=== PATIENT | male | born 1970 | race Two or more races ===

== ENCOUNTER 2020-07-18 11:27 | Emergency (ER) | payer OTHER, SELFPAY ==
--- NOTE | 2020-07-18 11:38 | XR_ITS ---
EXAMINATION: XR LUMBOSACRAL SPINE CLINICAL INFORMATION: Low back pain COMPARISON: None TECHNIQUE: Three views of the lumbosacral spine. FINDINGS: There is normal lumbar segmentation with 5 nonrib-bearing lumbar vertebrae of normal height and normal lumbar lordosis. There is no lumbar vertebral compression, spondylolisthesis, disc narrowing, or destructive process. The visualized SI joints and sacrum are unremarkable. Bowel gas is unremarkable. XR/XR lumbar spine 2-3V IMPRESSION: Normal lumbar spine.
[2020-07-18 11:41] VITALS: BP 145/93; PULSE 96; RESP 18; TEMP 36.4; O2SAT 97; BMI 29.6
[2020-07-18] MEDS: Ketorolac Tromethamine 60 MG/2 ML VIAL IM (11:50)
--- NOTE | 2020-07-18 12:17 | ED.BACK ---
HPI - Back Pain/Injury General Chief Complaint: Back Pain/Injury Stated Complaint: Back Pain Time Seen by Provider: 07/18/20 11:38 Source: patient Mode of arrival: ambulatory Limitations: no limitations History of Present Illness HPI Narrative: 50-year-old male who reports his history of asthma and hypertension presents ambulatory via triage with complaint of right lower back pain for past 3 days after he lifted a trash bag at work. [place] like a pulling sensation in his back and since has had back pain before. States he went to urgent care where he was evaluated and given prescription of a muscle relaxant he went to the pharmacy and there was no prescription there. Pain is alleviated with resting and holding in certain positions and aggravated with certain movements and palpation. He otherwise denies any GI or symptoms. No loss of bowel /urinary control. No abdominal pain. No upper back, chest, neck or headache. Denies any prior history of back problems. No IVD use. MD elicited complaint: back injury Onset (ago): day(s) Timing: intermittent Severity: moderate Similar Symptoms Previously: No Quality: aching Location: lumbar spine Radiation: none Exacerbating factors: movement Relieving factors: immobilization Context: while lifting Associated symptoms: denies other symptoms Treatments prior to arrival: other medications (none ) Work related injury: Yes Related Data Home Medications Medication Instructions Recorded Confirmed albuterol sulfate 90 mcg/actuation INHALATION 07/16/20 aerosol inhaler hydrochlorothiazide 25 mg tablet 25 mg PO DAILY 07/16/20 Previous Rx's Medication Instructions Recorded cyclobenzaprine 10 mg PO TID PRN #20 tab 07/18/20 cyclobenzaprine 5 mg tablet 5 mg PO TID PRN #30 tab 07/18/20 ibuprofen 800 mg PO Q8H PRN #30 tab 07/18/20 prednisone 20 mg tablet 20 mg PO DAILY 9 Days #18 tab 07/18/20 Allergies Allergy/AdvReac Type Severity Reaction Status Date / Time No Known Allergies Allergy Verified 07/16/20 11:43 Review of Systems Review of Systems: Constitutional: No Weight loss, No Fever, No Chills, No Night Sweats, No Fatigue, No Malaise ENT/Mouth: No Vision Changes Cardiovascular: No Chest Pain, No SOB, No Dyspnea on Exertion, No Orthopnea, No Edema, No Palpitations Respiratory: No Cough, No Sputum, No Wheezing Gastrointestinal: No Nausea, No Vomiting, No Diarrhea, No Constipation, No abdominal Pain, No Hematochezia, No Melena Genitourinary: no irregular bleeding, No Dysuria, No Urinary Frequency, No Hematuria, No Urinary Incontinence, No Urgency, No Flank Pain, No Urinary Flow Changes, No Hesitancy Musculoskeletal: as noted in HPI Skin: No Skin Lesions, No rash Neuro: No Weakness, No Numbness, No Paresthesias, No Loss of Consciousness, No Dizziness, No Headache Psych: No Social Issues Heme/Lymph: No Bruising, No Bleeding,No Lymphadenopathy Endocrine: No Polyuria, No Polydipsia, No Temperature Intolerance [facility] Past Medical History Attestation statement: The following information was validated with the patient. Social History Social History Advance Directives: No Advance Directives Information Provided: No Physical Exam Vital Signs: Vital Signs: Vital Signs Temp Pulse Resp BP Pulse Ox 07/18/20 11:41 97.6 F 96 18 145/93 H 97 Body Mass Index 29.6 Reviewed Const: General: cooperative and healthy appearing; No acute distress or intoxicated appearing Nutritional Appearance: average body habitus Orientation/consciousness: patient oriented x3 HENMT: Head: Yes normal to inspection Ears: hearing grossly normal bilaterally Eyes: General: appearance normal, both eyes and all related structures Visual [place]: normal visual [place] by confrontation Neck: Neck: Yes normal visual inspection and No tender Thyroid: Thyroid normal Chest: Chest palpation & inspection: normal inspection of the chest Resp: Effort & Inspection: normal respiratory effort Cardio: Jugular venous distension: no JVD Rate: regular rate GI: Inspection: Yes normal to inspection Percussion: Yes normal to percussion Auscultation: normal bowel sounds : General: Yes no CVA tenderness Back/Spine/Pelvis: Other: Distal reflexes within normal limits. Leg lift negative. Negative Spurling. Back: no CVA tenderness Back/spine/pelvis image: 1. Soft tissue tender palpation. No erythema, induration or rash. No midline to palpation. No step-off. Skin: General skin exam: no rashes or lesions noted Neuro: General: patient oriented x3 Extrem: General: Yes normal to inspection MDM - Back Pain/Injury MDM Narrative Medical decision making narrative: AP consistent with strain type injury to the lumbar paraspinal muscle on the right side. No midline to palpation. No GI symptoms. No low back pain red flags. No radiculopathy. Injury did occur 3 days ago at work. Patient will be given work note as he requested. Feels better after shot of Toradol. Will be discharged home with cyclobenzaprine / NSAID with clear return/follow-up instructions. He is out of bed ambulatory with steady straight gait. Differential Diagnosis Differential diagnosis: Likely lumbar radiculopathy, sciatica and strain of lumbar region; Unlikely renal colic, pyelonephritis, thoracic back pain, AAA and discitis Medical Records Attestation: I reviewed the patient's medical records. Imaging Data Lumbar spine x-ray: Radiologist's impression: [address] [id number] XRay Report Signed Patient: Celeste Casillas#: [id number] : 1970Acct:[id number] Age/Sex: 50 / MADM Date: 07/18/20 Loc: HO.ED Attending Dr: Ordering Physician: Darrick Mclaughlin NP Date of Service: 07/18/20 Procedure(s): XR lumbar spine 2-3V Accession Number(s): [id number] cc: Darrick Mclaughlin SAMPLE MOUNTER~ EXAMINATION: XR LUMBOSACRAL SPINE CLINICAL INFORMATION: Low back pain COMPARISON: None TECHNIQUE: Three views of the lumbosacral spine. FINDINGS: There is normal lumbar segmentation with 5 nonrib-bearing lumbar vertebrae of normal height and normal lumbar lordosis. There is no lumbar vertebral compression, spondylolisthesis, disc narrowing, or destructive process. The visualized SI joints and sacrum are unremarkable. Bowel gas is unremarkable. XR/XR lumbar spine 2-3V IMPRESSION: Normal lumbar spine. Dictated By:RAMAKRISNHA CHILDS MD Signed By:<Electronically signed by RAMAKRISHNA CHILDS MD in OV>07/18/20 1208 DD/ 1138 TD/TT: Creative Services Specialist: MONICA Discharge Plan Discharge Clinical Impression: Strain of lumbar region Qualifiers: Encounter type: initial encounter Qualified Code(s): S39.012A - Strain of muscle, fascia and tendon of lower back, initial encounter Patient Disposition: Home, Self-Care Instructions: Low Back Strain (ED) Prescriptions: New cyclobenzaprine 10 mg tablet 10 mg PO TID PRN (Reason: muscle spasm) Qty: 20 RF: 0 ibuprofen 800 mg tablet 800 mg PO Q8H PRN (Reason: pain) Qty: 30 RF: 0 No Action hydrochlorothiazide 25 mg tablet 25 mg PO DAILY RF: 0 albuterol sulfate 90 mcg/actuation HFA aerosol inhaler inhalation RF: 0 prednisone 20 mg tablet 20 mg PO DAILY 9 Days Qty: 18 RF: 0 cyclobenzaprine 5 mg tablet 5 mg PO TID PRN (Reason: muscle spasm) Qty: 30 RF: 0 Referrals: Physician,Unknown [Primary Care Provider] - 2 days (Primary care/ employee health) Stand Alone Forms: Work/School Release Interventions: ED Discharge Assessment Last Done: 07/18/20 12:36 Discharge Date/Time: 07/18/20 12:47
== END 2020-07-18 12:47 | disposition home or self-care (01) ==
LOC: HO.ED 12:27
PROVIDERS: Emergency Provider Emergency Medicine
DX: S39.012A Strain of muscle, fascia and tendon of lower back, initial encounter (principal); X50.0XXA Overexertion from strenuous movement or load, initial encounter; Y93.9 Activity, unspecified; Y92.009 Unspecified place in unspecified non-institutional (private) residence as the place of occurrence of the external cause; Z79.899 Other long term (current) drug therapy
CPT/HCPCS: 72100; 96372; 99282; 99283; 99284; J1885

== ENCOUNTER 2022-06-11 08:56 | Outpatient (REF) | payer OTHER, SELFPAY ==
[2022-06-11 09:15] LABS: MANUAL DIFF FLAG NO
[2022-06-11 09:38] LABS: Basophils Absolute Auto 0.1 X10*3/uL (0.0-0.2); Basophils Percent Auto 0.7 % (0-2); Eosinophils Absolute Auto 0.2 X10*3/uL (0.0-0.4); Eosinophils Percent Auto 2.5 % (0-4); Hematocrit 43.8 % (42.0-52.0); Hemoglobin 14.4 g/dl (14.0-18.0); Imm Gran Abs Auto 0.03 X10*3/uL (0.00-0.03); Imm Gran Pct Auto 0.4 % (0.0-0.4); Lymphocytes Absolute Auto 1.6 X10*3/uL (1.2-4.9); Lymphocytes Percent Auto 23.3 % (20-40); Mean Corpuscular HGB Conc 32.9 g/dl (31.0-36.0); Mean Corpuscular Hemoglobin 30.3 pg (27.0-33.0); Mean Corpuscular Volume 92.2 fL (80.0-98.0); Mean Platelet Volume 9.2 fL (9.4-12.4); Monocytes Absolute Auto 0.5 X10*3/uL (0.1-1.2); Monocytes Percent Auto 6.6 % (2-11); Neutrophils Absolute Auto 4.6 x10*3/uL (2.0-8.3); Neutrophils Percent Auto 66.5 % (45-73); Platelet Count 242 X10*3/uL (160-400); Red Blood Count 4.75 X10*6/uL (4.60-5.80); Red Cell Distribution Width 11.8 % (11.0-16.0); White Blood Count 6.9 X10*3/uL (4.8-10.8)
[2022-06-11 09:47] LABS: Appearance Urine Clear; Color Urine Yellow; Glucose Urine UA Negative (Negative); Leukocyte Esterase Urine Negative (Negative); Nitrite Urine Negative (Negative); Specific Gravity - Urine 1.025 (1.005-1.025); Urine Blood Negative (Negative); Urine Ketones Negative (Negative); Urine Protein Negative (Neg-Trace)
[2022-06-11 10:15] LABS: Alanine Aminotransferase 31 U/L (0-40); Albumin Level 4.7 g/dL (3.5-5.0); Alkaline Phosphatase 84 U/L (39-117); Anion Gap 14 (12-20); Aspartate Amino Transferase 20 U/L (5-37); Bilirubin Total 0.8 mg/dL (0.0-1.0); Blood Urea Nitrogen 11 mg/dL (9-16); Calcium 9.8 mg/dL (8.4-10.2); Carbon Dioxide 27 mmol/L (22-29); Chloride 104 mmol/L (96-108); Cholesterol 195 mg/dL; Estimated Glomerular Filt Rate > 60; Glucose Fasting 97 mg/dL (60-99); HDL Cholesterol 38 mg/dL; LDL Cholesterol Calculated 140 mg/dl; Potassium 4.1 mmol/L (3.3-5.1); Sodium 141 mmol/L (135-145); Total Protein 7.6 g/dL (6.5-8.0); Triglycerides 89 mg/dL
[2022-06-11 10:36] LABS: Prostate Specific Antigen Scr 1.58 ng/mL (<0.05-4.0); TSH reflex Free T4 1.89 uIU/mL (0.32-4.0); Vitamin D 25-OH Total 21.3 ng/mL (>30)
== END 2022-06-11 08:57 | disposition home or self-care (01) ==
LOC: HO.LAB 08:56
PROVIDERS: PCP Internal Medicine; Visit Provider Internal Medicine
DX: Z00.00 Encounter for general adult medical examination without abnormal findings (principal); Z12.5 Encounter for screening for malignant neoplasm of prostate; E55.9 Vitamin D deficiency, unspecified; I10 Essential (primary) hypertension
CPT/HCPCS: 36415; 80053; 80061; 81003; 82306; 84153; 84443; 85025